=== PATIENT | male | born 1965 | race African-American/Black ===

== ENCOUNTER 2019-04-07 08:49 | Inpatient (IN) ==
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
[2019-04-07] MEDS: SODIUM CHLORIDE 0.9% 1000ML 1,000 ML IV SCH ×2 (09:37→19:22)
--- NOTE | 2019-04-07 09:39 | XRay Report ---
XR chest 1V portable CLINICAL HISTORY: Stroke COMPARISON STUDY: No previous studies for comparison. FINDINGS: The cardiac and mediastinal contours are normal. There is no evidence of focal pulmonary co nsolidation. There is no evidence of failure. No pleural effusions are visualized.[ IMPRESSION: No active disease in the chest. Electronically signed by: Alfredo Figueroa M.D. 04/07/2019 9:38 AM
[2019-04-07 09:50] LABS: Eosinophils # (auto) 0.05 K/uL (0-0.5); Eosinophils % (auto) 1.2 %; Hematocrit (blood only) 37.5 % (42-52); Hemoglobin 12.8 g/dL (14.0-18.0); Immature Granulocytes # (auto) 0.01 K/uL (0.00-0.02); Immature Granulocytes % (auto) 0.2 %; Lymphocytes # (auto) 1.63 K/uL (1.2-3.4); Lymphocytes % (auto) 37.7 %; Mean Corpuscular Hgb Conc 34.1 g/dL (32-36); Mean Platelet Volume 11.1 fL (7.4-10.4); Monocytes # (auto) 0.44 K/uL (0.11-0.59); Monocytes % (auto) 10.2 %; Neutrophils # (auto) 2.19 K/uL (1.4-6.5); Neutrophils % (auto) 50.7 %; Platelet Count 267 K/uL (130-400); RDW Coefficient of Variation 13.6 % (11.5-14.5); RDW Standard Deviation 42.9 fL (36.4-46.3); Red Blood Count 4.36 M/uL (4.7-6.1); White Blood Count 4.32 K/uL (4.8-10.8)
[2019-04-07 09:57] LABS: Alanine Aminotransferase 25 U/L (12-78); Aspartate Aminotransferase 21 U/L (15-37); BUN Creatinine Ratio 13.2 (10-20); Blood Urea Nitrogen 15 mg/dl (7-18); Calcium 8.5 mg/dl (8.5-10.1); Carbon Dioxide 28 mmol/L (21-32); Chloride 108 mmol/L (98-107); Est GFR (African American) 81.4; Est GFR (Non-African American) 70.3; Glucose 93 mg/dl (70-99); Magnesium 2.3 mg/dl (1.8-2.4); Potassium 3.7 mmol/L (3.5-5.1); Sodium 143 mmol/L (136-145)
[2019-04-07 10:00] LABS: Partial Thromboplastin Time 27.3 Seconds (21.0-31.0); Prothrombin Time 10.3 Seconds (9.0-12.0)
[2019-04-07 10:02] LABS: Albumin Globulin Ratio 1.3 (0.9-2); Alkaline Phosphatase 67 U/L (45-117); Bilirubin,Total 0.3 mg/dl (0.2-1); Globulin 3.1 gm/dl (2.5-4.0); Total Protein 7.1 gm/dl (6.4-8.2); Troponin I < 0.015 ng/ml (0-0.045)
[2019-04-07] MEDS ORDERED: OPTIRAY 320 125ml IV PRN (12:03)
--- NOTE | 2019-04-07 12:11 | CT Scan Report ---
CT SCAN OF THE BRAIN WITHOUT IV CONTRAST CLINICAL HISTORY: Strokelike symptoms. COMPARISON STUDY: No priors. TECHNIQUE: Unenhanced axial CT scan of the brain is performed from the vertex to the skull base. A d ose lowering technique was utilized adhering to the principles of ALARA. FINDINGS: Brain parenchyma: The brain parenchyma is normal in appearance. There is no hemorrhage, mass effect, or evidence of acute territorial ischemia by CT criteria. Antonio-white matter differentiation is preser watson. No extra-axial fluid collection is seen. Ventricles, sulci, cisterns: Normal in configuration. Intracranial vasculature: The visualized intracranial vasculature at the skull base is normal in appe arance. Calvarium: Unremarkable. Sinuses and mastoids: The visualized paranasal sinuses are clear. The mastoid air cells are well pneu matized. Orbits: The bony orbits are grossly intact. IMPRESSION: There is no hemorrhage, mass effect, or evidence of acute territorial ischemia by CT [place]. Electronically signed by: Harvinder Velasquez M.D. 04/07/2019 12:09 PM
--- NOTE | 2019-04-07 12:23 | CT Scan Report ---
CT ANGIOGRAM OF THE BRAIN; CT ANGIOGRAM OF THE NECK CLINICAL HISTORY: Strokelike symptoms. COMPARISON STUDY: Unenhanced CT of the brain performed the same day 04/07/2019. TECHNIQUE: Following the IV administration of 120 of Optiray 320, CT angiogram of the head and neck w as performed from the aortic arch to the vertex. Images are reviewed in the axial, sagittal, and akanksha nal planes. 3-D MIPS images are created and assessed. IV contrast was administered without complicati on. All measurements were calculated based on NASCET criteria. A dose lowering technique was utilize d adhering to the principles of ALARA. CT DOSE: 1280.14 mGy.cm FINDINGS: Brain parenchyma: The brain parenchyma is normal in appearance. There is no hemorrhage, mass effect, or evidence of acute territorial ischemia by CT criteria. There is no evidence of enhancing mass lesi on on the angiogram phase images. The ventricles, sulci, and cisterns are normal in configuration. Gr ay-white matter differentiation is preserved. No extra-axial fluid collection is seen. Thoracic aorta: Visualized portions of the thoracic aorta are normal in caliber. The aortic arch demo nstrates standard 3-vessel anatomy. Right carotid arterial system: The right common carotid artery is widely patent, as are the right int ernal and external carotid arteries. Left carotid arterial system: The left common carotid artery is widely patent, as are the left international banker al and external carotid arteries. Vertebral arteries: The vertebral arteries are widely patent and codominant. There is focal ectasia a nd a focal dissection identified within the right vertebral artery just below the skull base at the l evel of C1 on axial image #334. The vertebral artery measures up to 5 mm at this site. Subclavian arteries: Widely patent bilaterally. Intracranial vasculature: The internal carotid arteries are patent at the skull base, as are the ante rior and middle cerebral arteries bilaterally. The vertebrobasilar system and posterior cerebral telma paulina are widely patent. Vertebral arteries are codominant. There is no aneurysm, high-grade stenosis, or focal vessel cut off seen throughout the intracranial circulation. Jugular veins: Widely patent bilaterally. Dural sinuses: Patent. Lung apices: Partially visualized upper lobe lung parenchyma appears clear. There are minimal secreti ons in the trachea. Soft tissues: The visualized pharyngeal soft tissues are normal in appearance noting angiographic pha se technique. The oropharyngeal airway appears widely patent. The salivary and thyroid glands are nor mal in appearance. No cervical lymphadenopathy is seen. Skeletal structures: The calvarium appears intact. The cervical spine is maintained noting mild spond ylosis. Orbits: The bony orbits are intact. Orbital contents are normal in appearance. Dentition: Numerous dental caries are identified. There are several periapical lucencies seen in the mandible. Sinuses and mastoids: The paranasal sinuses are clear. The mastoid air cells are well pneumatized. IMPRESSION: 1. There is no hemorrhage, mass effect, or evidence of acute territorial ischemia by CT criteria noti ng angiographic phase technique. 2. Unremarkable CT angiogram of the brain. 3. There is focal ectasia and a focal dissection identified in the distal right vertebral artery just below the skull base. This is located at the level of C1. 4. Otherwise unremarkable CT angiogram of the neck. Electronically signed by: Harvinder Velasquez M.D. 04/07/2019 12:22 PM
[2019-04-07] MEDS ORDERED: ASPIRIN CHEW 324 MG PO STA (12:57)
[2019-04-07] MEDS ORDERED: ONDANSETRON INJ 2 MG/ML 2 ML VIAL IV STA (13:16)
[2019-04-07] MEDS ORDERED: MoRPHine SULFATE 4 MG/ML 1 ML CARP\\VIAL IV STA (13:16)
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
[2019-04-07] MEDS ORDERED: ONDANSETRON INJ 2 MG/ML 2 ML VIAL IV PRN (16:11)
[2019-04-07] MEDS ORDERED: HydrALAZINE HCL 20 MG/ML VIAL IV PRN (16:28)
[2019-04-07] MEDS: MoRPHine SULFATE 2 MG/ML CARP IV PRN ×2 (16:58→21:02)
[2019-04-07] MEDS: BACITRACIN OINT 15 GM TUBE EXT SCH (18:36)
[2019-04-07] MEDS: ACETAMINOPHEN 500 MG TAB PO SCH (18:37)
[2019-04-07] MEDS: SULFAMETHOXAZOLE/TRIMETHOPRIM DS 800/160MG TAB PO SCH (21:01)
[2019-04-08] MEDS: ACETAMINOPHEN 500 MG TAB PO SCH ×3 (00:13→15:31)
[2019-04-08] MEDS: MoRPHine SULFATE 2 MG/ML CARP IV PRN ×5 (03:30→22:34)
[2019-04-08 06:01] LABS: Hematocrit (blood only) 37.2 % (42-52); Hemoglobin 12.6 g/dL (14.0-18.0); Mean Corpuscular Hgb Conc 33.9 g/dL (32-36); Mean Corpuscular Volume 87.3 fL (80-100); Mean Platelet Volume 10.9 fL (7.4-10.4); Platelet Count 262 K/uL (130-400); RDW Coefficient of Variation 13.7 % (11.5-14.5); RDW Standard Deviation 43.4 fL (36.4-46.3); Red Blood Count 4.26 M/uL (4.7-6.1); White Blood Count 4.86 K/uL (4.8-10.8)
[2019-04-08 06:21] LABS: Prothrombin Time 10.4 Seconds (9.0-12.0)
[2019-04-08 06:39] LABS: Albumin Level 3.7 gm/dl (3.4-5.0); BUN Creatinine Ratio 15.4 (10-20); Calcium 8.1 mg/dl (8.5-10.1); Creatinine Clr Calc Pharmacy 87.4 ml/min; Est GFR (African American) 81.4; Est GFR (Non-African American) 70.3; Potassium 3.7 mmol/L (3.5-5.1)
[2019-04-08 06:42] LABS: Albumin Globulin Ratio 1.2 (0.9-2); Bilirubin,Total 0.4 mg/dl (0.2-1); Globulin 3.1 gm/dl (2.5-4.0); Total Protein 6.8 gm/dl (6.4-8.2)
[2019-04-08 07:02] LABS: Estimated Average Glucose 134 mg/dl; Hemoglobin A1C 6.3 % (4.5-5.6)
[2019-04-08] MEDS: SULFAMETHOXAZOLE/TRIMETHOPRIM DS 800/160MG TAB PO SCH ×2 (08:56→20:58)
[2019-04-08] MEDS: ASPIRIN 325 MG ECTAB PO SCH (08:56)
[2019-04-08] MEDS: BACITRACIN OINT 15 GM TUBE EXT SCH ×2 (08:56→20:58)
[2019-04-08] MEDS ORDERED: ASPIRIN 81 MG ECTAB PO SCH (09:00)
[2019-04-08] MEDS: SODIUM CHLORIDE 0.9% 1000ML 1,000 ML IV SCH (14:24)
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
--- NOTE | 2019-04-08 20:46 | Magnetic Resonance Report ---
MRI OF THE BRAIN WITHOUT IV CONTRAST CLINICAL HISTORY: Right-sided facial and upper extremity numbness. COMPARISON STUDY: CT of the brain dated 04/07/2019. TECHNIQUE: MRI of the brain was performed utilizing various T1 and T2-weighted sequences in the axial , sagittal, and coronal planes. IV contrast was not administered for this examination. FINDINGS: Brain parenchyma: Minimal microangiopathic change is noted. There is no hemorrhage or mass effect. Th ere is no restricted diffusion to suggest acute ischemia. Antonio-white matter differentiation is preser watson. No extra-axial fluid collection is seen. The cerebellar tonsils are normal in configuration. Ventricles, sulci, and cisterns: Normal in configuration. Pituitary and sella: Unremarkable. Intracranial vasculature: Normal flow voids are maintained at the skull base. Orbits: The bony orbits are grossly intact. Orbital contents are normal in appearance. Sinuses and mastoids: Clear. Calvarium: Unremarkable. Cervical cord: Partially visualized cervical spinal cord is normal in morphology and signal intensity . IMPRESSION: No acute intracranial abnormality is identified. Electronically signed by: Harvinder Velasquez M.D. 04/08/2019 8:44 PM
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
[2019-04-09] MEDS: ACETAMINOPHEN 500 MG TAB PO SCH ×3 (00:13→16:55)
[2019-04-09] MEDS: MoRPHine SULFATE 2 MG/ML CARP IV PRN ×3 (06:15→18:06)
[2019-04-09 06:51] LABS: Hematocrit (blood only) 37.3 % (42-52); Hemoglobin 12.5 g/dL (14.0-18.0); Mean Corpuscular Hgb Conc 33.5 g/dL (32-36); Mean Corpuscular Volume 87.4 fL (80-100); Mean Platelet Volume 10.7 fL (7.4-10.4); Platelet Count 243 K/uL (130-400); RDW Coefficient of Variation 13.8 % (11.5-14.5); RDW Standard Deviation 43.6 fL (36.4-46.3); Red Blood Count 4.27 M/uL (4.7-6.1); White Blood Count 3.34 K/uL (4.8-10.8)
[2019-04-09 07:00] LABS: Prothrombin Time 10.1 Seconds (9.0-12.0)
[2019-04-09 07:26] LABS: Albumin Level 3.7 gm/dl (3.4-5.0); BUN Creatinine Ratio 11.9 (10-20); Calcium 8.4 mg/dl (8.5-10.1); Creatinine Clr Calc Pharmacy 84.1 ml/min; Est GFR (Non-African American) 68.1
[2019-04-09 07:29] LABS: Albumin Globulin Ratio 1.2 (0.9-2); Bilirubin,Total 0.4 mg/dl (0.2-1); Total Protein 6.7 gm/dl (6.4-8.2)
[2019-04-09] MEDS: SULFAMETHOXAZOLE/TRIMETHOPRIM DS 800/160MG TAB PO SCH (09:04)
[2019-04-09] MEDS: ASPIRIN 325 MG ECTAB PO SCH (09:04)
[2019-04-09] MEDS: BACITRACIN OINT 15 GM TUBE EXT SCH (09:04)
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
== END 2019-04-09 18:43 | DRG 301 ==
LOC: ED 08:49 → 2S 15:16 → SUATTDRO 15:16 → 2S 16:00
DX: R00.1 Bradycardia, unspecified; Z87.891 Personal history of nicotine dependence; R53.1 Weakness; I77.74 Dissection of vertebral artery